=== PATIENT | female | born 1950 | race American Indian/Alaskan Native ===

== ENCOUNTER 2019-08-21 11:01 | Outpatient (CLI) | payer MEDICARE ==
--- NOTE | 2019-08-24 09:54 | Mammography Report ---
BONE DEXA CLINICAL: Postmenopausal. TECHNIQUE: 2 site bone DEXA performed on an Hologic scanner. FINDINGS: The average BMD of the lumbar spine L1-L4 is 0.840g/cm squared with a T score of -2.8 and a Z score o f -0.5. The average total BMD of the left hip is 0.811 g/cm squared with a T score of -1.4and a Z score of -0 .3. IMPRESSION: 1. WHO classification: Osteoporosis with high fracture risk based on spine measurements. 2. WHO classification Osteopenia with increased fracture risk based on left hip measurements. RECOMMENDATION: Clinical correlation and routine screening. Definitions: BMD equal bone mineral density T score = BMD related to peak bone mass of young adult (Tate expressed an standard deviation) Z score = age-matched BMD expressed in SD World health organization (WHO) diagnostic criteria Normal T score greater than equal to 1 standard deviation Osteopenia T score between -1 and -2.4 standard deviation Osteoporosis T score -2.5 standard deviation or below. Note: BMD is not the only risk factor for fracture; also consider factors such as the patient's age, risk of falling, previous osteoporotic fracture, family history of osteoporotic fractures, current sm oker and low body weight. Z scores are not calculated if greater than 80 years of age. Signer Name: Tres Luther MD Signed: 08/24/2019 9:49 AM Workstation Name: [id number]
== END 2019-08-21 11:02 | disposition home or self-care (01) ==
LOC: SPVWC 11:01
PROVIDERS: ATTEND Family Medicine
DX: M81.0 Age-related osteoporosis without current pathological fracture (principal); Z78.0 Asymptomatic menopausal state
CPT/HCPCS: 77080

== ENCOUNTER 2021-12-19 14:35 | Outpatient (CLI) | payer MEDICARE ==
--- NOTE | 2021-12-19 17:24 | Mammography Report ---
DEXA BONE DENSITY SCAN INDICATION / CLINICAL INFORMATION: MENOPAUSAL OSTEOPOROSIS. 71 years Female COMPARISON: 08/21/2019 LUMBAR SPINE, L1-L4: - Bone mineral density (BMD) = 0.876 g/cm2. - T-score = -2.5 - Z-score = 0 Change (%) since most recent prior (if available): 4.2% increase RIGHT HIP, TOTAL : - Bone mineral density (BMD) = 0.754 g/cm2. - T-score = -1.8 - Z-score = -0.6 Change (%) since most recent prior (if available): None available. LEFT HIP, TOTAL : - Bone mineral density (BMD) = 0.843 g/cm2. - T-score = -1.2 - Z-score = 0 Change (%) since most recent prior (if available): 4% increase IMPRESSION: 1. WHO Classification: Osteoporosis. Fracture Risk: High. Note: 10-Year Fracture Risk (FRAX) not reported. This DEXA unit lacks FRAX functionality. BMD Reporting Guidelines (ISCD, 2015) BMD Reporting in Postmenopausal Women and in Men Age 50 and Older - T-scores are preferred. - The WHO densitometric classification is applicable. BMD Reporting in Females Prior to Menopause and in Males Younger Than Age 50 - Z-scores, not T-scores, are preferred. This is particularly important in children. - A Z-score of -2.0 or lower is defined as below the expected range for age, and a Z-score above -2.0 is within the expected range for age. - Osteoporosis cannot be diagnosed in men under age 50 on the basis of BMD alone. - The WHO diagnostic criteria may be applied to women in the menopausal transition. http://www.iscd.org/official-positions/6482-bihv-wscucqhg-positions-adult/ Signer Name: Samir Long MD Signed: 12/19/2021 5:19 PM Workstation Name: [id number]
== END 2021-12-19 14:36 | disposition home or self-care (01) ==
LOC: SPVWC 14:35
PROVIDERS: ATTEND Family Medicine
DX: M81.0 Age-related osteoporosis without current pathological fracture (principal)
CPT/HCPCS: 77080